=== PATIENT | female | born 1965 | race Caucasian/White ===

== ENCOUNTER 2016-11-03 20:20 | Emergency (ER) | payer OTHER ==
[~2016-11-03] VITALS: Ht 165.1 cm; Wt 74.4 kg
[2016-11-03 23:00] VITALS: BP 103/84
== END 2016-11-03 23:25 | disposition home or self-care (01) ==
LOC: ED 20:20
DX: J20.9 Acute bronchitis, unspecified (principal); R03.0 Elevated blood-pressure reading, without diagnosis of hypertension; Z88.2 Allergy status to sulfonamides
CPT/HCPCS: J7512; J7613; Q0092